=== PATIENT | female | born 1985 | race Hispanic/Latino ===

== ENCOUNTER 2016-10-31 17:56 | Emergency (ER) | payer MEDICAID ==
[2016-10-31 19:27] VITALS: BP 125/83
== END 2016-10-31 22:45 | disposition left against medical advice (07) ==
LOC: ED 17:56
DX: R50.9 Fever, unspecified (principal); M79.1 Myalgia; R05 Cough; Z53.21 Procedure and treatment not carried out due to patient leaving prior to being seen by health care provider

== ENCOUNTER 2019-09-02 09:11 | Observation (INO) | payer MEDICAID ==
--- NOTE | 2019-09-02 10:07 | XRay Report ---
CHEST 2 VIEWS INDICATION / CLINICAL INFORMATION: Cough x 5 weeks. COMPARISON: None available. FINDINGS: SUPPORT DEVICES: None. HEART / MEDIASTINUM: No significant abnormality. LUNGS / PLEURA: Left upper lobe parenchymal density likely secondary to bronchopneumonia. Right lung clear. ADDITIONAL FINDINGS: No significant additional findings. IMPRESSION: 1. Probable left upper lobe pneumonia. Short-term follow-up x-ray is recommended in 4 weeks to confir m resolution Signer Name: Gurpreet Stern MD Signed: 09/02/2019 10:02 AM Workstation Name: [id number]
[2019-09-02 13:22] LABS: Basophils % (Auto) 0.7 % (0.0-1.8); Eosinophils # (Auto) 0.1 K/mm3 (0.0-0.4); Eosinophils % (Auto) 1.4 % (0.0-4.3); Hematocrit 37.6 % (30.3-42.9); Hemoglobin 12.2 gm/dl (10.1-14.3); Lymphocytes # (Auto) 1.1 K/mm3 (1.2-5.4); Lymphocytes % (Auto) 16.2 % (13.4-35.0); Mean Corpuscular HGB Conc 33 % (30-34); Mean Corpuscular Volume 85 fl (79-97); Monocytes # (Auto) 0.3 K/mm3 (0.0-0.8); Monocytes % (Auto) 4.9 % (0.0-7.3); Platelet Count 285 K/mm3 (140-440); Red Blood Count 4.41 M/mm3 (3.65-5.03); Red Cell Distribution Width 13.9 % (13.2-15.2)
[2019-09-02 13:39] LABS: BUN/Creatinine Ratio 15; Blood Urea Nitrogen 9 mg/dL (7-17); Calcium 9.5 mg/dL (8.4-10.2); Hemolysis Index 5
[2019-09-02] MEDS ORDERED: CEFEPIME/NS 2 GM/100 ML 2 GM/100 ML BAG IV ONE (13:54)
[2019-09-02] MEDS ORDERED: SODIUM CHLORIDE 0.9% 1000 ML 1,000 ML IV ONE (14:07)
[2019-09-02] MEDS ORDERED: ONDANSETRON 4 MG/2 ML INJ IV PRN (14:35)
[2019-09-02] MEDS ORDERED: ACETAMINOPHEN 325 MG TAB PO PRN (14:35)
[2019-09-02] MEDS ORDERED: oxyCODONE /ACETAMINOPHEN 5-325MG TAB PO PRN (14:35)
[2019-09-02] MEDS ORDERED: ALBUTEROL 2.5 MG/3 ML NEBU IH PRN (14:35)
--- NOTE | 2019-09-02 14:39 | Emergency Department Report ---
ED General Adult HPI - General Chief complaint: Upper Respiratory Infection Stated complaint: COUGHING/ELGIN Time Seen by Provider: 09/02/19 13:44 Source: patient Mode of arrival: Ambulatory Limitations: No Limitations - History of Present Illness Initial comments: The patient presents to the emergency department with a chief complaint of a cough that has been present for the last 5 weeks. She states she was initially treated by her primary care physician for a sinus infection and was given Keflex. The patient states her cough has progressively gotten worse over the last 5 weeks and has complained of fever and chills as well. -: Gradual Severity scale (0 -10): 0 Consistency: constant Improves with: none Worsens with: none Associated Symptoms: denies other symptoms Treatments Prior to Arrival: none - Related Data Previous Rx's Medication Instructions Recorded Last Taken Type Pnv95/Ferrous Fumarate/FA 1 each PO QDAY #90 tablet 08/08/14 Unknown Rx [ Vitamins] cephALEXin [Keflex] 500 mg PO Q6H #28 capsule 08/08/14 Unknown Rx metroNIDAZOLE 0.75%(NF) [Metrogel 1 applicatio TP BID #10 tube 08/08/14 Unknown Rx 0.75%] Ibuprofen [Motrin 600 MG tab] 600 mg PO Q8H PRN #30 tablet 05/17/17 Unknown Rx Multivitamin with Iron 1 each PO DAILY #30 tablet 05/17/17 Unknown Rx [Multivitamins with Iron] oxyCODONE /ACETAMINOPHEN [Percocet 1 tab PO Q6HR PRN #30 tablet 05/17/17 Unknown Rx 5/325] Allergies Allergy/AdvReac Type Severity Reaction Status Date / Time aspirin Allergy Hives Verified 08/08/14 08:14 ED Review of Systems ROS: Stated complaint: COUGHING/ELGIN Other details as noted in HPI Comment: All other systems reviewed and negative Constitutional: denies: chills, fever Eyes: denies: eye pain, eye discharge, vision change ENT: denies: ear pain, throat pain Respiratory: cough. denies: shortness of breath, wheezing Cardiovascular: denies: chest pain, palpitations Endocrine: no symptoms reported Gastrointestinal: denies: abdominal pain, nausea, diarrhea Genitourinary: denies: urgency, dysuria, discharge Musculoskeletal: denies: back pain, joint swelling, arthralgia Skin: denies: rash, lesions Neurological: denies: headache, weakness, paresthesias Psychiatric: denies: anxiety, depression Hematological/Lymphatic: denies: easy bleeding, easy bruising ED Past Medical Hx - Past Medical History Previous Medical History?: Yes Hx Hypertension: No Hx Congestive Heart Failure: No Hx Diabetes: No Hx Deep Vein Thrombosis: No Hx Renal Disease: No Hx Sickle Cell Disease: No Hx Headaches / Migraines: Yes (MIGRAINE) Hx Seizures: No Hx Asthma: No Hx HIV: No - Surgical History Past Surgical History?: Yes Additional Surgical History: LEEP - Social History Smoking Status: Never Smoker - Medications Home Medications: Home Medications Medication Instructions Recorded Confirmed Last Taken Type Pnv95/Ferrous Fumarate/FA 1 each PO QDAY #90 tablet 08/08/14 05/18/17 Unknown Rx [ Vitamins] cephALEXin [Keflex] 500 mg PO Q6H #28 capsule 08/08/14 05/18/17 Unknown Rx metroNIDAZOLE 0.75%(NF) [Metrogel 1 applicatio TP BID #10 tube 08/08/14 05/18/17 Unknown Rx 0.75%] Ibuprofen [Motrin 600 MG tab] 600 mg PO Q8H PRN #30 tablet 05/17/17 Unknown Rx Multivitamin with Iron 1 each PO DAILY #30 tablet 05/17/17 Unknown Rx [Multivitamins with Iron] oxyCODONE /ACETAMINOPHEN [Percocet 1 tab PO Q6HR PRN #30 tablet 05/17/17 Unknown Rx 5/325] ED Physical Exam - General Limitations: No Limitations General appearance: alert, in no apparent distress - Head Head exam: Present: atraumatic, normocephalic - Eye Eye exam: Present: normal appearance, PERRL, EOMI - ENT ENT exam: Present: mucous membranes dry - Neck Neck exam: Present: normal inspection - Respiratory Respiratory exam: Present: other (diminished breath sounds left upper lung bermudez). Absent: respiratory distress - Cardiovascular Cardiovascular Exam: Present: normal rhythm, tachycardia. Absent: systolic murmur, diastolic murmur, rubs, gallop - GI/Abdominal GI/Abdominal exam: Present: soft, normal bowel sounds. Absent: distended, tenderness - Extremities Exam Extremities exam: Present: normal inspection - Back Exam Back exam: Present: normal inspection - Neurological Exam Neurological exam: Present: alert, oriented X3, CN II-XII intact. Absent: motor sensory deficit - Psychiatric Psychiatric exam: Present: normal affect, normal mood - Skin Skin exam: Present: warm, dry, intact, normal color. Absent: rash ED Course Vital Signs 09/02/19 09/02/19 09/02/19 09:18 12:26 14:11 Temperature 98.5 F 98.4 F 98.5 F Pulse Rate 117 H 108 H 115 H Respiratory 16 18 19 Rate Blood Pressure 124/82 Blood Pressure 127/84 115/79 [Right] O2 Sat by Pulse 95 97 97 Oximetry ED Medical Decision Making - Lab Data Result diagrams: 09/02/19 13:04 09/02/19 13:04 Lab Results 09/02/19 09/02/19 09/02/19 Range/Units 13:04 13:04 13:04 WBC 6.8 (4.5-11.0) K/mm3 RBC 4.41 (3.65-5.03) M/mm3 Hgb 12.2 (10.1-14.3) gm/dl Hct 37.6 (30.3-42.9) % MCV 85 (79-97) fl MCH 28 (28-32) pg MCHC 33 (30-34) % RDW 13.9 (13.2-15.2) % Plt Count 285 (140-440) K/mm3 Lymph % (Auto) 16.2 (13.4-35.0) % Fannin % (Auto) 4.9 (0.0-7.3) % Eos % (Auto) 1.4 (0.0-4.3) % Baso % (Auto) 0.7 (0.0-1.8) % Lymph # 1.1 L (1.2-5.4) K/mm3 Fannin # 0.3 (0.0-0.8) K/mm3 Eos # 0.1 (0.0-0.4) K/mm3 Baso # 0.0 (0.0-0.1) K/mm3 Seg Neutrophils % 76.8 H (40.0-70.0) % Seg Neutrophils # 5.2 (1.8-7.7) K/mm3 VBG pH 7.374 (7.320-7.420) Sodium (137-145) mmol/L Potassium (3.6-5.0) mmol/L Chloride (98-107) mmol/L Carbon Dioxide (22-30) mmol/L Anion Gap mmol/L BUN (7-17) mg/dL Creatinine (0.7-1.2) mg/dL Estimated GFR ml/min BUN/Creatinine Ratio % Glucose (65-100) mg/dL Lactic Acid 3.70 H* (0.7-2.0) mmol/L Calcium (8.4-10.2) mg/dL HCG, Qual (Negative) 09/02/19 09/02/19 Range/Units 13:04 13:04 WBC (4.5-11.0) K/mm3 RBC (3.65-5.03) M/mm3 Hgb (10.1-14.3) gm/dl Hct (30.3-42.9) % MCV (79-97) fl MCH (28-32) pg MCHC (30-34) % RDW (13.2-15.2) % Plt Count (140-440) K/mm3 Lymph % (Auto) (13.4-35.0) % Fannin % (Auto) (0.0-7.3) % Eos % (Auto) (0.0-4.3) % Baso % (Auto) (0.0-1.8) % Lymph # (1.2-5.4) K/mm3 Fannin # (0.0-0.8) K/mm3 Eos # (0.0-0.4) K/mm3 Baso # (0.0-0.1) K/mm3 Seg Neutrophils % (40.0-70.0) % Seg Neutrophils # (1.8-7.7) K/mm3 VBG pH (7.320-7.420) Sodium 141 (137-145) mmol/L Potassium 4.5 (3.6-5.0) mmol/L Chloride 100.8 (98-107) mmol/L Carbon Dioxide 21 L (22-30) mmol/L Anion Gap 24 mmol/L BUN 9 (7-17) mg/dL Creatinine 0.6 L (0.7-1.2) mg/dL Estimated GFR > 60 ml/min BUN/Creatinine Ratio 15 % Glucose 200 H (65-100) mg/dL Lactic Acid (0.7-2.0) mmol/L Calcium 9.5 (8.4-10.2) mg/dL HCG, Qual Negative (Negative) - Radiology Data Radiology results: report reviewed - Medical Decision Making Sepsis protocol initiated Results discussed with patient IV antibiotics and IV fluids initiated Critical Care Time: Yes Critical care time in (mins) excluding proc time.: 35 Critical care attestation.: If time is entered above; I have spent that time in minutes in the direct care of this critically ill patient, excluding procedure time. ED Disposition Clinical Impression: Pneumonia, Sepsis Disposition: DC-09 OP ADMIT IP TO THIS HOSP Is pt being admited?: Yes Does the pt Need Aspirin: No Condition: Fair Instructions: Bacterial Pneumonia (ED) Referrals: PRIMARY CARE, [Primary Care Provider] - 3-5 Days
--- NOTE | 2019-09-02 14:39 | History and Physical Report ---
History of Present Illness Chief complaint: I cant stop coughing, History of present illness: 33 YO Female with Obesity Hypoventilation Syndrome, Migraine Headache presents to ED for evaluation. Pt states that she has experienced nonproductive cough, nasal congestion over the past 5weeks, with worsening symptoms with the development of productive cough with yellow sputum over the past 1 week. Pt also reports weakness, subjective fever, chills, fatigue, malaise. Pt was seen and evaluated by her PCP and treated with oral antibiotic therapy with worsening of the aforementioned symptoms. Pt acknowledges exposure to Influenza. Pt transported to [facility] via private vehicle. Pt seen and evaluated in ED and found to have ISHA Pneumonia on chest X ray, SIRS, and Acidosis. Pt admitted to medical floor and initiated on pneumonia protocol. Pt denies CP, Palpitations, NVD, Trauma, BRBPR, Hemoptysis, Unilateral leg swelling, calf pain, prolonged travel/immobility, individual/family history of DVT/PE/Bleeding/Blood Clotting Disorders. Pt admitted to medical floor for treatment of pneumonia after failure of outpatient therapy. No prior admission for review. All medication listed at time of admission has been reconciled. Past History Past Medical History: other (see HPI) Past Surgical History: Other (LEEP) Social history: , lives with family. denies: smoking, alcohol abuse, prescription drug abuse Family history: hypertension Medications and Allergies Allergies Allergy/AdvReac Type Severity Reaction Status Date / Time aspirin Allergy Hives Verified 08/08/14 08:14 Home Medications Medication Instructions Recorded Confirmed Last Taken Type Pnv95/Ferrous Fumarate/FA 1 each PO QDAY #90 tablet 08/08/14 05/18/17 Unknown Rx [ Vitamins] cephALEXin [Keflex] 500 mg PO Q6H #28 capsule 08/08/14 05/18/17 Unknown Rx metroNIDAZOLE 0.75%(NF) [Metrogel 1 applicatio TP BID #10 tube 08/08/14 05/18/17 Unknown Rx 0.75%] Ibuprofen [Motrin 600 MG tab] 600 mg PO Q8H PRN #30 tablet 05/17/17 Unknown Rx Multivitamin with Iron 1 each PO DAILY #30 tablet 05/17/17 Unknown Rx [Multivitamins with Iron] oxyCODONE /ACETAMINOPHEN [Percocet 1 tab PO Q6HR PRN #30 tablet 05/17/17 Unknown Rx 5/325] Active Meds: Active Medications Acetaminophen (Tylenol) 650 mg PO Q4H PRN PRN Reason: Pain MILD(1-3)/Fever >100.5/KELLER Albuterol (Proventil) 2.5 mg IH Q4HRT PRN PRN Reason: Shortness Of Breath Levofloxacin/Dextrose (Levaquin 750mg/150ml) 750 mg in 150 mls @ 100 mls/hr IV ONCE ONE; Protocol Stop: 09/02/19 15:36 Sodium Chloride (Nacl 0.9% 1000 Ml) 1,000 mls @ 999 mls/hr IV BOLUS ONE Stop: 09/02/19 15:07 Last Admin: 09/02/19 14:18 Dose: 999 mls/hr Documented by: Miscellaneous Medication (Multivitamin With Iron [Multivitamins With Iron]) 1 each PO DAILY [facility] Miscellaneous Medication (Pnv95/Ferrous Fumarate/Fa [ Formula Tablet]) 1 each PO QDAY YUE Ondansetron HCl (Zofran) 4 mg IV Q8H PRN PRN Reason: Nausea And Vomiting Oxycodone/Acetaminophen (Percocet 5/325) 1 tab PO Q6H PRN PRN Reason: Pain, Moderate (4-6) Sodium Chloride (Sodium Chloride Flush Syringe 10 Ml) 10 ml IV BID YUE Sodium Chloride (Sodium Chloride Flush Syringe 10 Ml) 10 ml IV PRN PRN PRN Reason: LINE FLUSH Review of Systems Constitutional: fever, fatigue, weakness, malaise Ears, nose, mouth and throat: nasal congestion, sore throat, post-nasal drip, no ear pain, no ear discharge, no tinnitis, no decreased hearing Breasts: no change in shape, no swelling, no mass Cardiovascular: no chest pain, no orthopnea, no palpitations Respiratory: cough, cough with sputum, no dyspnea on exertion, no pain on inspiration Gastrointestinal: no abdominal pain, no nausea, no vomiting, no diarrhea, no constipation Genitourinary Female: no pelvic pain, no flank pain, no menorrhagia, no dysuria, no urinary frequency, no urgency Rectal: no pain, no incontinence, no bleeding Musculoskeletal: no neck pain, no shooting arm pain, no arm numbness/tingling, no low back pain, no shooting leg pain Integumentary: no rash, no pruritis, no redness, no sores, no wounds Neurological: no paralysis, no weakness, no parathesias, no numbness, no tingling, no seizures Psychiatric: no memory loss, no change in sleep habits, no sleep disturbances, no insomnia, no hypersomnia, no change in libido, no suicidal ideation Endocrine: no cold intolerance, no heat intolerance, no polyphagia, no polydipsia, no nocturia, no excessive sweating Hematologic/Lymphatic: no easy bruising, no easy bleeding, no lymphadenopathy, no lymphedema Allergic/Immunologic: no urticaria, no allergic rhinitis, no persistent infections, no anaphylaxis Exam - Constitutional Vitals: Temp Pulse Resp BP Pulse Ox 98.5 F 115 H 19 115/79 97 09/02/19 14:11 09/02/19 14:11 09/02/19 14:11 09/02/19 14:11 09/02/19 14:11 General appearance: Present: mild distress - EENT Eyes: Present: PERRL ENT: hearing intact, clear oral mucosa - Neck Neck: Present: supple, normal ROM - Respiratory Respiratory effort: labored Respiratory: left: diminished - Cardiovascular Heart Sounds: Present: S1 & S2. Absent: rub, click - Extremities Extremities: pulses symmetrical, No edema Peripheral Pulses: within normal limits - Abdominal General gastrointestinal: Present: soft, non-tender, non-distended, normal bowel sounds Female genitourinary: Present: normal - Integumentary Integumentary: Present: clear, warm, dry - Musculoskeletal Musculoskeletal: gait normal, strength equal bilaterally - Psychiatric Psychiatric: appropriate mood/affect, intact judgment & insight - Neurologic Neurologic: CNII-XII intact, moves all extremities Results - Labs CBC & Chem 7: 09/02/19 13:04 09/02/19 13:04 Labs: Abnormal lab results 09/02/19 09/02/19 09/02/19 Range/Units 13:04 13:04 13:04 Lymph # 1.1 L (1.2-5.4) K/mm3 Seg Neutrophils % 76.8 H (40.0-70.0) % Carbon Dioxide 21 L (22-30) mmol/L Creatinine 0.6 L (0.7-1.2) mg/dL Glucose 200 H (65-100) mg/dL Lactic Acid 3.70 H* (0.7-2.0) mmol/L Assessment and Plan - Patient Problems (1) Pneumonia Current Visit: Yes Status: Acute Qualifiers: Laterality: left Lung location: upper lobe of lung Plan to address problem: Pneumonia Protocol: IV antibiotic therapy, Influenza antigen, CBC, CMP, pulse oximetry, supplemental oxygen, chest x ray, IVF resuscitation therapy, blood cultures, (2) Acidosis Current Visit: Yes Status: Acute Plan to address problem: IVF resuscitation therapy, repeat bmp, treat pneumonia, (3) Obesity hypoventilation syndrome Current Visit: Yes Status: Acute Plan to address problem: Supplemental oxygen, pulse oximetry, NIPPV as clinically indicated, nebulizer therapy, balanced diet, increased physical activity at discharge, record daily weight. (4) SIRS (systemic inflammatory response syndrome) Current Visit: Yes Status: Acute Plan to address problem: IV antibiotic therapy, CBC, CMP, chest x ray, influenza antigen, urinalysis, IVF resuscitation therapy. (5) Migraine Current Visit: Yes Status: Acute Qualifiers: Intractability: not intractable Plan to address problem: Sumitriptan therapy, supportive care. (6) DVT prophylaxis Current Visit: Yes Status: Acute Plan to address problem: SCD to BLE while in bed,
[2019-09-02] MEDS ORDERED: SUMAtriptan SUCCINATE 50 MG TAB PO ONE (16:39)
[2019-09-02] MEDS ORDERED: ENOXAPARIN 40 MG/0.4 ML INJ SUB-Q SCH (22:00)
[2019-09-02] MEDS: SODIUM CHLORIDE 0.9% 1000 ML 1,000 ML IV SCH (22:03)
[2019-09-02] MEDS: guaiFENesin 100 MG/5 ML ORAL LIQD PO PRN (23:24)
[2019-09-03] MEDS: SODIUM CHLORIDE 0.9% 1000 ML 1,000 ML IV SCH (06:06)
[2019-09-03 06:34] LABS: Basophils % (Auto) 0.7 % (0.0-1.8); Eosinophils # (Auto) 0.2 K/mm3 (0.0-0.4); Eosinophils % (Auto) 2.8 % (0.0-4.3); Hematocrit 33.2 % (30.3-42.9); Hemoglobin 11.1 gm/dl (10.1-14.3); Lymphocytes # (Auto) 1.3 K/mm3 (1.2-5.4); Lymphocytes % (Auto) 23.6 % (13.4-35.0); Mean Corpuscular HGB Conc 33 % (30-34); Mean Corpuscular Volume 84 fl (79-97); Monocytes # (Auto) 0.3 K/mm3 (0.0-0.8); Monocytes % (Auto) 5.6 % (0.0-7.3); Platelet Count 242 K/mm3 (140-440); Red Blood Count 3.94 M/mm3 (3.65-5.03); Red Cell Distribution Width 13.5 % (13.2-15.2)
[2019-09-03 07:00] LABS: Alanine Aminotransferase 31 units/L (7-56); Albumin 3.9 g/dL (3.9-5); BUN/Creatinine Ratio 20; Blood Urea Nitrogen 10 mg/dL (7-17); Calcium 8.7 mg/dL (8.4-10.2); Hemolysis Index 8
[2019-09-03] MEDS: guaiFENesin 100 MG/5 ML ORAL LIQD PO PRN (09:21)
[2019-09-03] MEDS ORDERED: AZITHROMYCIN 500 MG in SODIUM CHLORIDE 0.9% 250ML 250 ML IV SCH (10:00)
[2019-09-03] MEDS ORDERED: cefTRIAXone/NS 2 GM/100 ML 2 GM/100 ML BAG IV SCH (10:00)
[2019-09-03] MEDS ORDERED: MULTIVITAMIN WITH IRON PO SCH (10:00)
[2019-09-03] MEDS ORDERED: FERROUS FUMARATE PO SCH (10:00)
[2019-09-03] MEDS ORDERED: PRENATAL VIT27-FE FUMARATE-FOLIC ACID VIT TAB PO SCH (10:00)
[2019-09-03] MEDS ORDERED: PNV95 PO SCH (10:00)
[2019-09-03] MEDS ORDERED: [UNRECOGNIZED DRUG - OTHER] PO SCH (10:00)
--- NOTE | 2019-09-03 13:50 | Discharge Summary ---
Providers - Providers Date of Admission: 09/02/19 14:35 Date of discharge: 09/03/19 Attending physician: ELSA DYSON Primary care physician: [facility]IST Hospitalization Condition: Fair Hospital course: Discharge diagnosis: /Pneumonia, CAP - d/c with total 7 days of abx therapy /Lactic Acidosis, from dehydration - resolved with iv fluid /Possible sleep apnea, need outpt f/u /SIRS (systemic inflammatory response syndrome) - likely from PNA, w/o organ dysfunction /Migraine, on Sumitriptan therapy, supportive care. Disposition: DC- TO HOME OR SELFCARE Time spent for discharge: 34 minutes Core Measure Documentation - Palliative Care Palliative Care/ Comfort Measures: Not Applicable - Core Measures Any of the following diagnoses?: none Exam - Constitutional Vitals: Temp Pulse Resp BP Pulse Ox 98.4 F 95 H 18 112/64 98 09/03/19 04:40 09/03/19 04:40 09/03/19 04:40 09/03/19 04:40 09/03/19 07:18 General appearance: Present: no acute distress, obese - EENT Eyes: Present: PERRL ENT: hearing intact, clear oral mucosa - Neck Neck: Present: supple, normal ROM - Respiratory Respiratory effort: normal Respiratory: bilateral: CTA - Cardiovascular Heart Sounds: Present: S1 & S2. Absent: rub, click - Extremities Extremities: pulses symmetrical, No edema Peripheral Pulses: within normal limits - Abdominal General gastrointestinal: Present: soft, non-tender, non-distended, normal bowel sounds - Integumentary Integumentary: Present: clear, warm, dry - Musculoskeletal Musculoskeletal: gait normal, strength equal bilaterally - Psychiatric Psychiatric: appropriate mood/affect, intact judgment & insight - Neurologic Neurologic: CNII-XII intact, moves all extremities Plan Activity: advance as tolerated Weight Bearing Status: Weight Bear as Tolerated Diet: low fat, low salt Follow up with: DI GONSALEZ MD [Primary Care Provider] - 3-5 Days SHELIA AGUILAR MD [Staff Physician] - 7 Days Prescriptions: levoFLOXacin [Levaquin] 750 mg PO QDAY #5 tablet guaiFENesin ER [Mucinex ER] 600 mg PO Q12H #14 tablet.er
[2019-09-03 14:55] VITALS: BP 117/79
== END 2019-09-03 15:15 | disposition home or self-care (01) ==
LOC: ED 09:11 → 3A 14:35 → INTOOBSV 14:35
PROVIDERS: ADMIT Internal Medicine; ATTEND Internal Medicine
DX: A41.9 Sepsis, unspecified organism (principal); J18.9 Pneumonia, unspecified organism; E87.2 Acidosis; E66.2 Morbid (severe) obesity with alveolar hypoventilation; G43.909 Migraine, unspecified, not intractable, without status migrainosus; Z68.41 Body mass index [BMI] 40.0-44.9, adult
CPT/HCPCS: 36415; 71046; 80048; 80053; 82140; 82805; 84703; 85025; 87040; 96365; 96367; 96368; 96372; 99291; G0378; J0456; J0692; J0696; J1650; J1956; J7030; J7050

== ENCOUNTER 2019-11-11 12:36 | Emergency (ER) | payer MEDICAID ==
[2019-11-11 15:29] VITALS: BP 122/86
--- NOTE | 2019-11-11 15:30 | Event Note ---
ED Screening Note ED Screening Note: states that last week went to her primary care doctor and was diagnosed with flu states that the coughing became worse +sputum production states she has chest discomfort after frequent coughing no fever this morning no n/v/d PMHx none allergy: aspirin LNMP: 11/05/2019 This initial assessment/diagnostic orders/clinical plan/treatment(s) is/are subject to change based on patients health status, clinical progression and re- assessment by fellow clinical providers in the ED. Further treatment and workup at subsequent clinical providers discretion. Patient/guardian urged not to elope from the ED as their condition may be serious if not clinically assessed and managed. Initial orders include: labs, CXR
--- NOTE | 2019-11-11 16:29 | XRay Report ---
CHEST 2 VIEWS INDICATION: productive cough. COMPARISON: 09/02/2019 FINDINGS: Support devices: None. Heart: Within normal limits. Pulmonary vasculature: Normal. Lungs/pleura: The lungs are normally expanded and clear. Previously identified left upper lobe opacif ication has resolved. No pleural effusion. No pneumothorax. Additional findings: None. IMPRESSION: 1. Normal chest. 2. Resolution of left upper lobe pneumonia. Signer Name: Bird Alex MD Signed: 11/11/2019 4:24 PM Workstation Name: [id number]
[2019-11-11 16:38] LABS: Basophils # (Auto) 0.1 K/mm3 (0.0-0.1); Basophils % (Auto) 0.8 % (0.0-1.8); Eosinophils # (Auto) 0.1 K/mm3 (0.0-0.4); Eosinophils % (Auto) 1.3 % (0.0-4.3); Hematocrit 38.9 % (30.3-42.9); Hemoglobin 12.8 gm/dl (10.1-14.3); Lymphocytes # (Auto) 2.3 K/mm3 (1.2-5.4); Lymphocytes % (Auto) 24.5 % (13.4-35.0); Mean Corpuscular HGB Conc 33 % (30-34); Mean Corpuscular Volume 82 fl (79-97); Monocytes # (Auto) 0.5 K/mm3 (0.0-0.8); Monocytes % (Auto) 5.2 % (0.0-7.3); Platelet Count 326 K/mm3 (140-440); Red Blood Count 4.74 M/mm3 (3.65-5.03); Red Cell Distribution Width 14.7 % (13.2-15.2)
[2019-11-11 16:58] LABS: Alanine Aminotransferase 42 units/L (7-56); Albumin 4.6 g/dL (3.9-5); BUN/Creatinine Ratio 20; Blood Urea Nitrogen 10 mg/dL (7-17); Calcium 9.5 mg/dL (8.4-10.2); Hemolysis Index 10
--- NOTE | 2019-11-11 18:59 | Emergency Department Report ---
- General Chief Complaint: Upper Respiratory Infection Stated Complaint: FLU SYM Time Seen by Provider: 11/11/19 15:28 Source: patient Mode of arrival: Ambulatory Limitations: No Limitations - History of Present Illness Initial Comments: Patient is 34 years old female with no significant past medical history except for migraine. Patient was admitted to the hospital for left upper lobe pneumonia 2 months ago. Patient presented to the ER complaining of cough, productive with greenish sputum for the last 7 days. Patient stated that she was diagnosed with flu by her primary care physician at that time. Patient currently denying any fever, chest pain, nausea or vomiting. No shortness of breath. MD Complaint: cough -: week(s) (1) Context: sick contacts - Related Data Previous Rx's Medication Instructions Recorded Last Taken Type guaiFENesin ER [Mucinex ER] 600 mg PO Q12H #14 tablet.er 09/03/19 Unknown Rx levoFLOXacin [Levaquin] 750 mg PO QDAY #5 tablet 09/03/19 Unknown Rx Allergies Allergy/AdvReac Type Severity Reaction Status Date / Time aspirin Allergy Hives Verified 08/08/14 08:14 ED Review of Systems ROS: Stated complaint: FLU SYM Other details as noted in HPI Comment: All other systems reviewed and negative Constitutional: denies: chills, fever Respiratory: cough. denies: orthopnea, shortness of breath, SOB with exertion, SOB at rest, wheezing Cardiovascular: denies: chest pain, palpitations Gastrointestinal: denies: abdominal pain, nausea, vomiting Neurological: denies: headache, weakness, numbness, paresthesias, confusion ED Past Medical Hx - Past Medical History Hx Hypertension: No Hx Congestive Heart Failure: No Hx Diabetes: No Hx Deep Vein Thrombosis: No Hx Renal Disease: No Hx Sickle Cell Disease: No Hx Headaches / Migraines: Yes (MIGRAINE) Hx Seizures: No Hx Asthma: No Hx COPD: No Hx HIV: No - Surgical History Additional Surgical History: LEEP - Social History Smoking Status: Never Smoker Substance Use Type: None - Medications Home Medications: Home Medications Medication Instructions Recorded Confirmed Last Taken Type guaiFENesin ER [Mucinex ER] 600 mg PO Q12H #14 tablet.er 09/03/19 Unknown Rx levoFLOXacin [Levaquin] 750 mg PO QDAY #5 tablet 09/03/19 Unknown Rx ED Physical Exam - General Limitations: No Limitations General appearance: alert, in no apparent distress - Head Head exam: Present: atraumatic, normocephalic, normal inspection - Eye Eye exam: Present: normal appearance - ENT ENT exam: Present: normal exam, normal orophraynx, mucous membranes moist - Neck Neck exam: Present: normal inspection, full ROM. Absent: tenderness, meningismus - Respiratory Respiratory exam: Present: normal lung sounds bilaterally, chest wall tenderness (Right upper chest tenderness). Absent: respiratory distress, wheezes, rales, rhonchi, stridor, accessory muscle use, decreased breath sounds, prolonged expiratory - Cardiovascular Cardiovascular Exam: Present: regular rate, normal rhythm, normal heart sounds. Absent: tachycardia - GI/Abdominal GI/Abdominal exam: Present: soft. Absent: distended, tenderness, guarding - Extremities Exam Extremities exam: Present: normal inspection, full ROM, normal capillary refill. Absent: tenderness, pedal edema, joint swelling, calf tenderness - Back Exam Back exam: Present: normal inspection, full ROM. Absent: CVA tenderness (R), CVA tenderness (L) - Neurological Exam Neurological exam: Present: alert, oriented X3, CN II-XII intact - Psychiatric Psychiatric exam: Present: normal mood - Skin Skin exam: Present: warm, intact, normal color ED Course Vital Signs 11/11/19 11/11/19 13:32 15:29 Temperature 98.4 F Pulse Rate 121 H 94 H Respiratory 18 Rate Blood Pressure 122/86 O2 Sat by Pulse 96 Oximetry ED Medical Decision Making - Lab Data Result diagrams: 11/11/19 15:58 11/11/19 15:58 - Radiology Data Radiology results: report reviewed - Medical Decision Making Patient is 34 years old female with no significant past medical history except for migraine. Patient was admitted to the hospital for left upper lobe pneumonia 2 months ago. Patient presented to the ER complaining of cough, productive with greenish sputum for the last 7 days. Patient stated that she w as diagnosed with flu by her primary care physician at that time. Patient currently denying any fever, chest pain, nausea or vomiting. No shortness of breath. Patient remain stable in the ER. Labs reviewed and is unremarkable. Chest x- ray is negative for acute finding. Patient symptoms is consistent with acute bronchitis with possible costochondritis. Patient given a prescription for amoxicillin, Robitussin and advised to follow-up with her primary care physician in the next 2 to 3 days and to return to the ER if she develop any new symptoms. Critical care attestation.: If time is entered above; I have spent that time in minutes in the direct care of this critically ill patient, excluding procedure time. ED Disposition Clinical Impression: Acute bronchitis Disposition: DC-01 TO HOME OR SELFCARE Is pt being admited?: No Condition: Stable Instructions: Acute Bronchitis (ED) Referrals: PRIMARY CARE, [Primary Care Provider] - 3-5 Days Forms: Work/School Release Form(ED)
== END 2019-11-11 19:15 | disposition home or self-care (01) ==
LOC: ED 12:36
DX: J20.9 Acute bronchitis, unspecified (principal); G43.909 Migraine, unspecified, not intractable, without status migrainosus; Z88.6 Allergy status to analgesic agent; Z79.899 Other long term (current) drug therapy
CPT/HCPCS: 36415; 71046; 80053; 85025

== ENCOUNTER 2021-03-25 17:27 | Emergency (ER) | payer OTHER, MEDICAID ==
[2021-03-25 17:45] VITALS: BP 137/89
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
== END 2021-03-25 20:32 | disposition home or self-care (01) ==
LOC: ED 17:27
DX: M54.2 Cervicalgia (principal); M54.5 Low back pain; R07.89 Other chest pain; G43.909 Migraine, unspecified, not intractable, without status migrainosus; Z98.890 Other specified postprocedural states; Z79.2 Long term (current) use of antibiotics; Z79.899 Other long term (current) drug therapy; Z88.6 Allergy status to analgesic agent; V49.49XA Driver injured in collision with other motor vehicles in traffic accident, initial encounter; Y93.89 Activity, other specified; Y92.410 Unspecified street and highway as the place of occurrence of the external cause; Y99.8 Other external cause status
CPT/HCPCS: 99281